=== PATIENT | female | born 1955 | race Caucasian/White ===

== ENCOUNTER → 2016-07-29 | Outpatient (CLI) | payer OTHER ==
--- NOTE | 2016-07-29 10:25 | US ---
HISTORY: Primary biliary: Jaundice, history of nonalcoholic cirrhosis of the liver Study: Abdominal Ultrasound Comparison: None Technique: Multiple jordan scale and color flow Doppler images of the abdomen were obtained. Findings: The liver has a cirrhotic configuration. No focal mass identified. The gallbladder is distended. Th ere is a single gallstone noted. The gallbladder wall is thickened measuring 6 mm. The common bile d uct measures 2.9 mm. No pericholecystic fluid or sonographic Abreu sign reported. The visualized portions of the pancreas are unremarkable. The spleen is enlarged measuring up to 16 cm likely related to portal venous hypertension. The right and left kidney are normal in echotexture and size. The right kidney measures 10 x 6.9 x 5 cm. The left kidney measures 10.5 by 4.8 x 5.6 cm. There is a simple appearing right renal cyst tayo suring 1.4 cm. The visualized portions of the abdominal aorta are normal in size without aneurysmal dilatation. IMPRESSION: 1. There is a single gallstone noted. The gallbladder wall is thickened up to 6 mm which may be due to underlying inflammation/edema or may be secondary to hepatocellular dysfunction. 2. Cirrhotic appearance of the liver. 3. Splenomegaly likely related to portal venous hypertension. 4. Simple appearing right renal cyst. Reported By:
== END ==
LOC: RAD 08:59
PROVIDERS: ATTEND Physician Assistant
DX: K74.3 Primary biliary cirrhosis (principal); N28.1 Cyst of kidney, acquired
CPT/HCPCS: 76700